=== PATIENT | female | born 2000 | race Hispanic/Latino ===

== ENCOUNTER 2023-12-16 18:01 | Emergency (ER) | payer BC ==
[~2023-12-16] VITALS: Ht 160 cm; Wt 88.5 kg
[~2023-12-16 18:01] MED LIST: ESGIC 50-325-41 EACH PO; ONDANSETRON ODT4 MG PO; PROMETHAZINE HC25 M1 PO
[2023-12-16 18:13] VITALS: PULSE 82; RESP 18; TEMP 97.1
[2023-12-16] MEDS: ONDANSETRON HCL INJ 2MG/ML 2ML 2 MG/ML VIAL IV STA (18:41)
[2023-12-16] MEDS: FAMOTIDINE 20 MG/2 ML VIAL IV STA (18:41)
[2023-12-16] MEDS: SODIUM CHLORIDE 0.9% 1000ML 1,000 ML IV SCH (18:41)
[2023-12-16] MEDS: Morphine 4mg INJECTION 4 MG/ML INJ IV ONE ×2 (19:51→21:25)
[2023-12-16 23:10] VITALS: BP 136/84; PULSE 80; RESP 18; TEMP 97.4; O2SAT 97
== END 2023-12-16 23:10 | disposition short-term general hospital (02) ==
LOC: FSED 18:11
DX: O89.4 Spinal and epidural anesthesia-induced headache during the puerperium (principal)
CPT/HCPCS: 70450; 99284; J2270; J2405; J7030